=== PATIENT | female | born 1995 | race American Indian/Alaskan Native ===

== ENCOUNTER 2021-07-07 21:11 | Emergency (ER) | payer MEDICAID ==
[2021-07-07 21:54] VITALS: BP 128/78
== END 2021-07-09 02:50 | disposition left against medical advice (07) ==
LOC: ED 21:11
DX: O26.891 Other specified pregnancy related conditions, first trimester (principal); R10.9 Unspecified abdominal pain; Z3A.13 13 weeks gestation of pregnancy; Z53.21 Procedure and treatment not carried out due to patient leaving prior to being seen by health care provider